=== PATIENT | male | born 1980 ===

== ENCOUNTER 2018-04-26 03:41 | Emergency (ER) | payer OTHER ==
[2018-04-26 04:01] VITALS: BMI 30.1
[2018-04-26 04:03] VITALS: RESP 16; TEMP 98; O2SAT 98
[2018-04-26] MEDS ORDERED: Oxycodone/Acetaminophen 5/325 mg Tab PO STA (04:16)
[2018-04-26] MEDS ORDERED: Oxycodone/Acetaminophen 5/325 mg Tab ONE (04:27)
--- NOTE | 2018-04-26 05:26 | ED PDOC ---
HPI: Back Time Seen by Provider: 04/26/18 03:56 Chief Complaint (Nursing): Back Pain Chief Complaint (Provider): Low back pain radiating down the left leg x 1 month History Per: Patient History/Exam Limitations: no limitations Onset/Duration Of Symptoms: Days Current Symptoms Are (Timing): Still Present Quality Of Discomfort: Sharp Severity: Severe Pain Scale Rating Of: 10 Previous Symptoms: None Associated Symptoms: None Exacerbating Factor(s): Movement, Sitting Additional Complaint(s): Denies fall or trauma. Past Medical History Reviewed: Historical Data, Nursing Documentation, Vital Signs Vital Signs: Last Vital Signs Temp 98.0 F 04/26/18 04:01 Pulse 87 04/26/18 04:01 Resp 16 04/26/18 04:01 BP 137/89 04/26/18 04:11 Pulse Ox 98 04/26/18 04:01 - Medical History PMH: No Chronic Diseases - Surgical History Surgical History: No Surg Hx - Family History Family History: States: No Known Family Hx - Living Arrangements Living Arrangements: With Family - Social History Current smoker - smoking cessation education provided: No - Home Medications Home Medications: Ambulatory Orders Medication Instructions Recorded oxyCODONE/Acetaminophen [Percocet 1 ea PO Q6H PRN #15 tab 04/26/18 5/325 mg Tab] - Allergies Allergies/Adverse Reactions: Allergies Allergy/AdvReac Type Severity Reaction Status Date / Time No Known Allergies Allergy Verified 04/26/18 04:01 Review of Systems ROS Statement: Except As Marked, All Systems Reviewed And Found Negative Constitutional: Negative for: Fever, Chills Musculoskeletal: Positive for: Back Pain Physical Exam - Reviewed Nursing Documentation Reviewed: Yes Vital Signs Reviewed: Yes - Physical Exam Appears: Positive for: Well, Non-toxic, No Acute Distress Head Exam: Positive for: ATRAUMATIC, NORMAL INSPECTION, NORMOCEPHALIC Skin: Positive for: Normal Color, Warm, DRY Eye Exam: Positive for: Normal appearance ENT: Positive for: Normal ENT Inspection Neck: Positive for: Normal Cardiovascular/Chest: Positive for: Regular Rate, Rhythm Respiratory: Positive for: Normal Breath Sounds. Negative for: Accessory Muscle Use, Respiratory Distress Back: Positive for: Normal Inspection Extremity: Positive for: Normal ROM, Other ((+) left leg raise ) Neurologic/Psych: Positive for: Alert, Oriented - ECG O2 Sat by Pulse Oximetry: 98 Medical Decision Making Medical Decision Makin - Pt reports feeling much better on re-evaluation. Disposition - Clinical Impression Clinical Impression: Sciatica - Patient ED Disposition Is Patient to be Admitted: No Counseled Patient/Family Regarding: Diagnosis, Need For Followup, Rx Given - Disposition Disposition: Routine/Home Disposition Time: 05:25 Condition: STABLE Prescriptions: oxyCODONE/Acetaminophen [Percocet 5/325 mg Tab] 1 ea PO Q6H PRN #15 tab PRN Reason: Pain, Severe (8-10) Instructions: Sciatica (DC)
[2018-04-26 05:32] VITALS: BP 143/90; PULSE 78
== END 2018-04-26 05:32 | disposition home or self-care (01) ==
LOC: H.ER 03:41
DX: M54.32 Sciatica, left side (principal)